=== PATIENT | male | born 1935 | race Caucasian/White ===

== ENCOUNTER 2016-09-14 16:45 | Emergency (ER) | payer MEDICARE, MEDICAID ==
[~2016-09-14] VITALS: Ht 165.1 cm; Wt 95.7 kg
[~2016-09-14 16:45] MED LIST: DILTIAZEM CD240 M1 PO; HYDROCHLOROTHIA25 M1 PO; KEFLEX 500MG.500 MG PO; LEVOFLOXAC500 MG/20 IV; LISINOPRIL 5MG T5 MG PO; METFORMIN1000 MG PO; POTASSIUM CHLO20 ME2 PO; VYTORIN 10 MG-41 TAB PO; ZITHROMAX Z-PA250 M1 PO
--- NOTE | 2016-09-14 18:05 | RADIOLOGY REPORT PS360 ---
ANKLE-RT-3 VIEWS COMPARISON: None HISTORY: Right ankle pain and swelling after injury TECHNIQUE: AP lateral and oblique views FINDINGS: There is diffuse soft tissue swelling laterally. There is minimal spurring of the tip of the lateral malleolus and tip of the medial malleolus area data mortise appears normal. There is no definite fracture seen. IMPRESSION: Minor degenerative changes of the ankle joint along with mild soft tissue injury, no fracture seen.
--- NOTE | 2016-09-14 18:10 | Emergency Room Report ---
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 SWELLING NOTED TO LATERAL SIDE OF R ANKLE. 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 N Clinical Suspician of Infection? N Mental Status: 1 - Regular (Normal Baseline) Sepsis Risk:Low Sepsis Risk Have you (or family members/close friends) recently traveled outside the [place]? N If Yes, where/when: Have you had exposure to infectious disease within the past month? N TB? Other? Specify: [facility] and twisted his ankle and hurt his right ankle and complains of RIGHT ankle pain family's at bedside they state there wasn't any other falls or trauma or any other complaints, moderate achy pain no falls no other trauma no head injury. ALLERGIES Coded Allergies: No Known Allergies (01/24/16) Home Medications Active Scripts POTASSIUM CHL (Potassium Chloride) 20 MEQ PO DAILY #30 Prov: 12/15/11 LISINOPRIL (Lisinopril) 5 MG PO DAILY #30 TAB Ref 2 Prov: 01/29/16 Reported Medications METFORMIN HCL (Metformin) 1,000 MG PO BID DILTIAZEM HCL (Diltiazem 24HR Cd) 240 MG PO DAILY History Medical History General CAD? No Angina: No [place]: No Hypertension? Yes Hyperlipidemia? No CHF? No DVT? No PE? No COPD? No Asthma? No Anemia? No GERD? No Gastric ulcers? No GI Bleed? No Hernia? No Thyroid Problems? No Hypothyroidism? No CVA? No Seizures? No Diabetes? Yes Insulin Dependent: No Insulin Pump: No Home FSBS? Yes Renal Insuffiency? No End Stage Renal Disease? No UTI? No Stones? No BPH? No GB Disease: No Nephritic Syndrome? No Asplenia? No Hepatitis? No Sickle Cell Disease? No Arthritis? No Migraines? No Cataracts? No Glaucoma? No MRSA? No HIV? No TB? No Anxiety? No Depression? No Cancer? No More? No Immunization Hx DT/Tetanus [id number] Flu UNKNOWN Pneumonia Refuses Surgical Hx Previous Surgery?N Family History Family Hx Diabetes No CAD No Hypertension Yes Hyperlipidemia No Cancer No TB No Social History Smoking Hx Smoker: Unknown if Ever Smoked Tobacco: No Alcohol Alcohol: No Review of Systems All Other Systems Reviewed and Negative Physical Exam Vital Signs Vital Signs Date Time Temp Pulse Resp B/P Pulse O2 O2 Flow FiO2 Ox Delivery Rate 09/15 1999 97.6 68 18 122/72 94 09/14 1942 97.6 68 18 122/72 94 09/14 1850 64 18 126/79 94 09/14 1800 73 18 137/72 97 09/14 1647 97.6 67 18 123/76 96 General Appearance: Nontoxic Head: Normocephalic, without obvious abnormality, atraumatic. Eyes: conjunctiva/corneas clear ENT: Mucous membranes moist. Neck: No jugular venous distention. Cardiac: regular rate and rhythm Lungs: Clear to auscultation bilaterally Extremities: no edema Musculoskeletal: No chest wall tenderness RIGHT: ankle has some swelling at the malleolus laterally and some tenderness. no Ecchymosis Foot is nontender 2+ pulses capillary refill intact Sensation intact Skin: No rashes or lesions to exposed skin. Neurologic: Alert. No gross focal deficits Psychiatric: Normal affect (Yanira LAU, Macario) General Appearance normal appearance Respiratory Status No: respiratory distress. Cardiovascular no JVD Neurologic alert Medical Decision Making LABS/Meds/Orders Pt receiving controlled substance in ED? No Results/Orders Orders Procedure Date/time Status STABILIZE JOINT 09/14 1809 Active Departure Departure Time of Disposition 1807 Disposition DC Home or Self Care(routine) Clinical Impression Primary Impression: Ankle sprain Qualifiers: Encounter type: initial encounter Involved ligament of ankle: unspecified ligament Laterality: right Qualified Code: S93.401A - Sprain of unspecified ligament of right ankle, initial encounter Condition STABLE Referrals Vishal Box (Family) Patient Instructions Ankle Sprain Additional Instructions air splint for 5 days' wbat ED Critical Care Critical Care No
--- NOTE | 2016-09-14 18:10 | Emergency Room Report ---
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 SWELLING NOTED TO LATERAL SIDE OF R ANKLE. 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 N Clinical Suspician of Infection? N Mental Status: 1 - Regular (Normal Baseline) Sepsis Risk:Low Sepsis Risk Have you (or family members/close friends) recently traveled outside the [place]? N If Yes, where/when: Have you had exposure to infectious disease within the past month? N TB? Other? Specify: Patient at the [place] [facility] with transfer off of a bus and twisted his ankle and hurt his right ankle and complains of RIGHT ankle pain family's at bedside they state there wasn't any other falls or trauma or any other complaints, moderate achy pain no falls no other trauma no head injury. ALLERGIES Coded Allergies: No Known Allergies (01/24/16) Home Medications Active Scripts POTASSIUM CHL (Potassium Chloride) 20 MEQ PO DAILY #30 Prov: 12/15/11 LISINOPRIL (Lisinopril) 5 MG PO DAILY #30 TAB Ref 2 Prov: 01/29/16 Reported Medications METFORMIN HCL (Metformin) 1,000 MG PO BID DILTIAZEM HCL (Diltiazem 24HR Cd) 240 MG PO DAILY History Medical History General CAD? No Angina: No [place]: No Hypertension? Yes Hyperlipidemia? No CHF? No DVT? No PE? No COPD? No Asthma? No Anemia? No GERD? No Gastric ulcers? No GI Bleed? No Hernia? No Thyroid Problems? No Hypothyroidism? No CVA? No Seizures? No Diabetes? Yes Insulin Dependent: No Insulin Pump: No Home FSBS? Yes Renal Insuffiency? No End Stage Renal Disease? No UTI? No Stones? No BPH? No GB Disease: No Nephritic Syndrome? No Asplenia? No Hepatitis? No Sickle Cell Disease? No Arthritis? No Migraines? No Cataracts? No Glaucoma? No MRSA? No HIV? No TB? No Anxiety? No Depression? No Cancer? No More? No Immunization Hx DT/Tetanus [id number] Flu UNKNOWN Pneumonia Refuses Surgical Hx Previous Surgery?N Family History Family Hx Diabetes No CAD No Hypertension Yes Hyperlipidemia No Cancer No TB No Social History Smoking Hx Smoker: Unknown if Ever Smoked Tobacco: No Alcohol Alcohol: No Review of Systems All Other Systems Reviewed and Negative Physical Exam Vital Signs Vital Signs Date Time Temp Pulse Resp B/P Pulse O2 O2 Flow FiO2 Ox Delivery Rate 09/15 1999 97.6 68 18 122/72 94 09/14 1942 97.6 68 18 122/72 94 09/14 1850 64 18 126/79 94 09/14 1800 73 18 137/72 97 09/14 1647 97.6 67 18 123/76 96 General Appearance: Nontoxic Head: Normocephalic, without obvious abnormality, atraumatic. Eyes: conjunctiva/corneas clear ENT: Mucous membranes moist. Neck: No jugular venous distention. Cardiac: regular rate and rhythm Lungs: Clear to auscultation bilaterally Extremities: no edema Musculoskeletal: No chest wall tenderness RIGHT: ankle has some swelling at the malleolus laterally and some tenderness. no Ecchymosis Foot is nontender 2+ pulses capillary refill intact Sensation intact Skin: No rashes or lesions to exposed skin. Neurologic: Alert. No gross focal deficits Psychiatric: Normal affect (Yanira LAU, Mac[place]) General Appearance normal appearance Respiratory Status No: respiratory distress. Cardiovascular no JVD Neurologic alert Medical Decision Making LABS/Meds/Orders Pt receiving controlled substance in ED? No Results/Orders Orders Procedure Date/time Status STABILIZE JOINT 09/14 1809 Active Departure Departure Time of Disposition 1807 Disposition DC Home or Self Care(routine) Clinical Impression Primary Impression: Ankle sprain Qualifiers: Encounter type: initial encounter Involved ligament of ankle: unspecified ligament Laterality: right Qualified Code: S93.401A - Sprain of unspecified ligament of right ankle, initial encounter Condition STABLE Referrals Vishal Box (Family) Patient Instructions Ankle Sprain Additional Instructions air splint for 5 days' wbat ED Critical Care Critical Care No
[2016-09-14 20:00] VITALS: BP 122/72
== END 2016-09-14 20:00 | disposition home or self-care (01) ==
LOC: ER 16:45
PROC: 2W3SX1Z Immobilization of Right Foot using Splint (ICD-10-PCS; principal; 2016-09-14)
DX: S93.401A Sprain of unspecified ligament of right ankle, initial encounter (principal); X50.1XXA Overexertion from prolonged static or awkward postures, initial encounter; Y92.89 Other specified places as the place of occurrence of the external cause; I10 Essential (primary) hypertension; E11.9 Type 2 diabetes mellitus without complications